=== PATIENT | male | born 1960 | race Caucasian/White ===

== ENCOUNTER 2019-09-18 14:10 | Outpatient (RCR) | payer OTHER, SELFPAY | END 2019-10-09 23:59 | disposition home or self-care (01) | LOC: MPT 14:10 | PROVIDERS: PCP Family Medicine; Referring Provider Family Medicine; Visit Provider Family Medicine | DX: I69.359 Hemiplegia and hemiparesis following cerebral infarction affecting unspecified side (principal) | CPT/HCPCS: 97110; 97116; 97161; 97530 ==

== ENCOUNTER 2019-10-10 06:00 | Outpatient (RCR) | payer OTHER, SELFPAY | END 2019-11-08 23:59 | disposition home or self-care (01) | LOC: MPT 06:00 | PROVIDERS: PCP Family Medicine; Referring Provider Family Medicine; Visit Provider Family Medicine | DX: I69.359 Hemiplegia and hemiparesis following cerebral infarction affecting unspecified side (principal) | CPT/HCPCS: 97110; 97112; 97116 ==

== ENCOUNTER 2019-11-09 06:00 | Outpatient (RCR) | payer MEDICARE, SELFPAY | END 2019-12-09 23:59 | disposition home or self-care (01) | LOC: MPT 06:00 | PROVIDERS: PCP Family Medicine; Referring Provider Family Medicine; Visit Provider Family Medicine | DX: I69.359 Hemiplegia and hemiparesis following cerebral infarction affecting unspecified side (principal) | CPT/HCPCS: 97116 ==

== ENCOUNTER 2019-11-15 06:00 | Outpatient (RCR) | payer MEDICARE, SELFPAY | END 2019-12-09 23:59 | disposition home or self-care (01) | LOC: MOT 06:00 | PROVIDERS: PCP Family Medicine; Referring Provider Family Medicine; Visit Provider Family Medicine | DX: I69.30 Unspecified sequelae of cerebral infarction (principal) | CPT/HCPCS: 97165; 97760; L3923 ==

== ENCOUNTER → 2019-11-29 10:25 | Outpatient (BNVA) | payer MEDICARE, SELFPAY | PROVIDERS: PCP Family Medicine; Visit Provider Family Medicine | DX: I69.398 Other sequelae of cerebral infarction (principal); R25.9 Unspecified abnormal involuntary movements; I10 Essential (primary) hypertension; E78.2 Mixed hyperlipidemia | CPT/HCPCS: 80053; 80061; 83735 ==